=== PATIENT | male | born 1970 | race Caucasian/White ===

== ENCOUNTER 2017-06-20 00:47 | Emergency (ER) | payer SELFPAY ==
[~2017-06-20] VITALS: Ht 170.2 cm; Wt 100.0 kg
[2017-06-20 00:52] VITALS: Ht 170.2 cm; Wt 100.0 kg
[2017-06-20] MEDS ORDERED: ONDANSETRON 4 MG INJ IV STA (02:42)
[2017-06-20] MEDS ORDERED: SOD CHLORIDE 0.9% 500 ML IV STA (02:42)
[2017-06-20] MEDS ORDERED: morphine 4 MG/ML VIAL IV STA (02:42)
[2017-06-20 02:59] VITALS: BP 133/81; PULSE 89; RESP 20; TEMP 97.5
--- NOTE | 2017-06-20 03:06 | RADRPT ---
PROCEDURE: XR Chest. CLINICAL INDICATION: Abdominal pain TECHNIQUE: Single frontal view of the chest was obtained COMPARISON: None FINDINGS: The heart and mediastinum are within normal limits. There is mild prominence of the lung interstitium likely mild chronic changes. There is no pleural effusion or pneumothorax. ECG leads projected over the chest. The patient is m inimally rotated to the left IMPRESSION: Mild prominence of lung interstitium which could represent mild chronic changes. Mild bilateral inte rstitial infiltrates are possible. RPTAT: HJES .Jairo Dunbar MD, MD Date Time Electronically viewed and signed by .Jairo Dunbar MD, MD on 06/20/2017 03:05 .S/
[2017-06-20 03:09] LABS: BASOPHIL # 0.1 10^3/ul (0.0-0.1); BASOPHILS % 1.3 % (0.0-2.0); EOSINOPHILS # 0.4 10^3/ul (0.0-0.5); EOSINOPHILS % 5.6 % (0.0-7.0); HEMATOCRIT 46.5 % (42.0-52.0); HEMOGLOBIN 15.6 g/dl (14.0-18.0); LYMPHOCYTES % 38.8 % (15.0-51.0); MEAN CORPUSCULAR HEMOGLOBIN 29.1 pg (29.0-33.0); MEAN CORPUSCULAR HGB CONC 33.5 g/dl (32.0-37.0); MEAN CORPUSCULAR VOLUME 86.6 fl (82.0-101.0); MEAN PLATELET VOLUME 11.1 fl (7.4-10.4); MONOCYTE # 0.7 10^3/ul (0.3-0.9); MONOCYTES % 8.5 % (0.0-11.0); NEUTROPHILS % 45.3 % (39.0-77.0); PLATELET COUNT 277 10^3/UL (140-415); RED BLOOD COUNT 5.37 10^6/ul (4.70-6.10); WHITE BLOOD COUNT 7.7 10^3/ul (4.8-10.8)
[2017-06-20 03:29] LABS: ALBUMIN 3.9 g/dl (3.3-4.9); ALBUMIN/GLOBULIN RATIO 1.02; BILIRUBIN,INDIRECT 0.1 mg/dl (0-1.1); BILIRUBIN,TOTAL 0.1 mg/dl (0.2-1.3); CALCIUM 8.9 mg/dl (8.4-10.2); CREATININE 1.06 mg/dl (0.61-1.24); POTASSIUM 3.9 mmol/L (3.5-5.1); TOTAL PROTEIN 7.7 g/dl (6.1-8.1)
[2017-06-20] MEDS ORDERED: HYDR-902 PO (05:05)
--- NOTE | 2017-06-20 05:08 | ERD ---
ER Documentation Chief Complaint Date/Time DATE: 06/20/17 TIME: 05:07 Chief Complaint MID UPPER AP RADIATING TO LEFT SIDE BACK. DENIES N/V HPI 38-year-old male with right-sided flank pain that radiated to his groin today. History of kidney stones recently diagnosed. No fevers no chills. Mild nausea no vomiting. Pain is mild to moderate intensity but colicky in nature and comes in waves. No other current complaints. ROS All systems reviewed and are negative except as per history of present illness. Medications Home Meds Active Scripts Hydrocodone/Acetaminophen ([place] 10-325 Tablet) 1 Each Tablet, 1 TAB PO Q6H Y for PAIN, #20 TAB Prov:CHASESAMANTHA ThompsonFloyd 06/20/17 Allergies Allergies: Coded Allergies: No Known Allergy (Unverified , 06/20/17) PMhx/Soc Medical and Surgical Hx: pt denies Medical Hx History of Surgery: No Anesthesia Reaction: No Hx Neurological Disorder: No Hx Respiratory Disorders: No Hx Cardiac Disorders: Yes (htn ) Hx Psychiatric Problems: No Hx Miscellaneous Medical Probl: No Hx Alcohol Use: No Hx Substance Use: No Hx Tobacco Use: Yes Smoking Status: Current every day smoker Physical Exam Vitals Vital Signs Date Time Temp Pulse Resp B/P Pulse Ox O2 Delivery O2 Flow Rate FiO2 06/20/17 02:59 97.5 89 20 133/81 97 06/20/17 00:52 97.5 67 20 130/95 97 Physical Exam Const: [] Head: Atraumatic Eyes: Normal Conjunctiva ENT: Normal External Ears, Nose and Mouth. Neck: Full range of motion..~ No meningismus. Resp: Clear to auscultation bilaterally Cardio: Regular rate and rhythm, no murmurs Abd: Soft, non tender, non distended. Normal bowel sounds Skin: No petechiae or rashes Back: No midline or flank tenderness Ext: No cyanosis, or edema Neur: Awake and alert Psych: Normal Mood and Affect Result Diagram: 06/20/17 0230 06/20/17 0230 Results 24 hrs Laboratory Tests Test 06/20/17 02:30 White Blood Count 7.710^3/ul Red Blood Count 5.3710^6/ul Hemoglobin 15.6g/dl Hematocrit 46.5% Mean Corpuscular Volume 86.6fl Mean Corpuscular Hemoglobin 29.1pg Mean Corpuscular Hemoglobin Concent 33.5g/dl Red Cell Distribution Width 13.0% Platelet Count 94793^3/UL Mean Platelet Volume 11.1fl Neutrophils % 45.3% Lymphocytes % 38.8% Monocytes % 8.5% Eosinophils % 5.6% Basophils % 1.3% Nucleated Red Blood Cells % 0.0/100WBC Neutrophils # (Manual) 3.510^3/ul Lymphocytes # 3.010^3/ul Monocytes # 0.710^3/ul Eosinophils # 0.410^3/ul Basophils # 0.110^3/ul Nucleated Red Blood Cells # 0.010^3/ul Sodium Level 144mmol/L Potassium Level 3.9mmol/L Chloride Level 109mmol/L Carbon Dioxide Level 28mmol/L Anion Gap 11 Blood Urea Nitrogen 16mg/dl Creatinine 1.06mg/dl Glucose Level 107mg/dl Calcium Level 8.9mg/dl Total Bilirubin 0.1mg/dl Direct Bilirubin 0.00mg/dl Indirect Bilirubin 0.1mg/dl Aspartate Amino Transf (AST/SGOT) 18IU/L Alanine Aminotransferase (ALT/SGPT) 38IU/L Alkaline Phosphatase 105IU/L Total Protein 7.7g/dl Albumin 3.9g/dl Globulin 3.80g/dl Albumin/Globulin Ratio 1.02 Lipase 80U/L Current Medications Medications (Trade) Dose Ordered Sig/Brenda Route PRN Reason Start Time Stop Time Status Last Admin Dose Admin Sodium Chloride (NS) 500 ml @ 500 mls/hr Q1H STAT IV 06/20/17 02:42 06/20/17 03:41 DC 06/20/17 02:58 Morphine Sulfate (morphine) 4 mg ONCE STAT IV 06/20/17 02:42 06/20/17 02:43 DC 06/20/17 02:54 Ondansetron HCl (Zofran Inj) 4 mg ONCE STAT IV 06/20/17 02:42 06/20/17 02:43 DC 06/20/17 02:55 Procedures/MDM EKG: Rate/Rhythm: [Normal Sinus Rhythm] QRS, ST, T-waves: [No changes consistent w/ acute ischemia] Impression: [No evidence of ischemia or arrhythmia] Chest X-ray 1V Interpreted by me: Soft Tissue: No acute abnormalities Bones: No acute abnormalities Mediastinum/Cardiac Silhouette/Lungs: [No acute abnormalities] Medical decision-m[age]-year-old gentleman has a evidence of likely kidney stone passing. At this point clinically stable. Pain resolved. Patient will be discharged home. Departure Diagnosis: Primary Impression: Multiple complaints Condition: Stable Patient Instructions: Kidney Stone, Passed SAMANTHA STONE Jun 20, 2017 05:08
== END 2017-06-20 05:29 | disposition home or self-care (01) ==
LOC: E/R 00:47
DX: R10.9 Unspecified abdominal pain (principal); F17.210 Nicotine dependence, cigarettes, uncomplicated; I10 Essential (primary) hypertension; R11.0 Nausea
CPT/HCPCS: 36415; 71010; 80053; 83690; 85025; 93005; 96374; 96375; 99285; J2270; J2405; J7040